=== PATIENT | male | born 1980 | race Caucasian/White ===

== ENCOUNTER 2018-05-07 14:39 | Emergency (ER) | payer BC, OTHER ==
[2018-05-07] MEDS ORDERED: KETOROLAC TROMETHAMINE INJ 30 MG/ML VIAL IV ONE (14:40)
[2018-05-07] MEDS ORDERED: HYDROmorphone HCL INJ 2 MG/ML VIAL IV ONE ×2 (14:40→15:33)
--- NOTE | 2018-05-07 14:45 | ED.PDOC ---
History of Present Illness - General Chief Complaint: General Stated Complaint: severe post surgical pain Time Seen by Provider: 05/07/18 14:40 Source: patient Exam Limitations: no limitations - History of Present Illness Initial Comments: patient comes in for severe postoperative pain not relieved by home medications. On Saturday patient was on vacation and slipped and fell down a flight of stairs causing a fracture of his jaw and right lower extremity. Yesterday patient had those things fixed surgically and he was discharged from the hospital last night. Patient states since discharge he has been excruciating pain despite taking 2 of his hydrocodone 10/325. He called his surgeon who called in some muscle relaxer that he has not yet picked up from pharmacy as he is in severe pain and decided to come here. Patient states that prior to discharge he was on Toradol and Dilaudid and neither hydrocodone nor morphine had helped when he was at the hospital. Patient denies any past medical history and has no known drug allergies. Timing/Duration: 24 hours Severity: severe Improving Factors: nothing Worsening Factors: movement Associated Symptoms: denies symptoms Allergies/Adverse Reactions: Allergies NO KNOWN ALLERGY Allergy (Verified 05/07/18 15:19) Home Medications: Ambulatory Orders Aspirin [Baby Aspirin] 1 tablet PO DAILY 05/07/18 Flexeril 05/07/18 HYDROcodone 10MG/APAP 325MG [[place] 10/325] 1 tablet PO Q4HR PRN 05/07/18 Ketorolac Tromethamine [Toradol Tabs] 10 mg PO Q6HRS PRN 3 Days #12 tab Tramadol HCl [Ultram] 100 mg PO Q6HRS PRN 4 Days #30 tab 05/07/18 Review of Systems - Review of Systems Constitutional: States: no symptoms reported. Denies: chills, fever EENTM: States: no symptoms reported Respiratory: States: no symptoms reported Cardiology: States: no symptoms reported. Denies: chest pain, edema, palpitations Gastrointestinal/Abdominal: States: no symptoms reported Genitourinary: States: no symptoms reported Musculoskeletal: States: see HPI Family Medical History - Family History Mother Family History: Unknown Physical Exam - Physical Exam General Appearance: Alert, Obvious distress, Restless Ears, Nose, Throat: hearing grossly normal, other - Jaw wired shut Neck: non-tender, full range of motion, supple, normal inspection Respiratory: chest non-tender, lungs clear, normal breath sounds, no respiratory distress Cardiovascular/Chest: normal peripheral pulses, no edema, no gallop, no murmur, tachycardia Peripheral Pulses: radial,right: 2+, radial,left: 2+ Gastrointestinal/Abdominal: normal bowel sounds, non tender, soft, no organomegaly Extremity: other - RLE with posterior splint in place and good sensation, color , and capillary refill to toes, removal of splint shows well approximated incisions bilaterally without purulence, redness, and only minimal edema. Progress - Progress Progress: called orthopedic physician for patient who performed repair. Dr. Valerio states he is concerned with the patient's request for stronger narcotics. Patient left originally prior to fixation of the injury AGAINST MEDICAL ADVICE, showed up to several other hospitals and then returned to have it fixed. After the original fixation patient was adamant that he wanted to be released home and was discharged home yesterday. states he does not give stronger narcotics for these kind of repairs and he worries that the patient's shows some symptoms concerning for abuse potential. Patient denies any drug abuse now or in the past states he drinks alcohol and uses testosterone but has only used marijuana 3 times as life and of those were recent. At this time we are to get the patient's pain under control and we'll send him home with Toradol to add the hydrocodone when necessary he has. He should follow up with orthopedics as planned and call in the morning if needed. 05/07/18 15:58 - Results/Orders Results/Orders: x-ray shows good placement and no movement of recent repair Departure - Departure Clinical Impression: Pain Disposition: Discharge to Home or Self Care Condition: Good Departure Forms: ED Discharge - Pt. Copy, Patient Portal Self Enrollment Referrals: Guanako Browne MD [Primary Care Provider] - 1-2 Weeks Prescriptions: Ketorolac Tromethamine [Toradol Tabs] 10 mg PO Q6HRS PRN 3 Days #12 tab PRN Reason: Pain Tramadol HCl [Ultram] 100 mg PO Q6HRS PRN 4 Days #30 tab PRN Reason: Pain Home Medications: Ambulatory Orders Aspirin [Baby Aspirin] 1 tablet PO DAILY 05/07/18 Flexeril 05/07/18 HYDROcodone 10MG/APAP 325MG [[place] 10/325] 1 tablet PO Q4HR PRN 05/07/18 Ketorolac Tromethamine [Toradol Tabs] 10 mg PO Q6HRS PRN 3 Days #12 tab Tramadol HCl [Ultram] 100 mg PO Q6HRS PRN 4 Days #30 tab 05/07/18 Additional Instructions: Patient may continue hydrocodone in addition to the Ultram and Toradol that he is given. Patient is aware that Toradol is a type of NSAID and that he should not take other NSAIDs at the same time as the Toradol. Patient was given a dose here in the emergency room. patient may take a dose of Ultram every 6 hours starting directly after discharge. Patient's next dose of Toradol should not be until 11 PM. The Toradol should not exceed an additional 3 days. Patient may alternate hydrocodone with Ultram and Toradol. follow-up with orthopedics via phone tomorrow to discuss if change in treatment is needed.
[2018-05-07 15:20] VITALS: TEMP 99.9
--- NOTE | 2018-05-07 15:53 | RAD ---
EXAM DESCRIPTION: Ankle,Right 2 Views CLINICAL HISTORY: 37 years, Male, pain/fall after repair COMPARISON: None. TECHNIQUE: Two views right ankle. FINDINGS: Three views right ankle demonstrate fixation of the medial malleolus with two longitudinal screws. The distal fibula is internally fixed with sideplate with proximal and distal screws as well as two transverse screws into the distal tibia. Previous fixation site probably an external fixator involving the distal tibial shaft is noted more proximally. The ankle mortise is well-maintained on these two views. IMPRESSION: 1. Satisfactory preservation of ankle mortise with internal fixation of the medial and lateral malleolus. Electronically signed by: Guanako Conley MD 05/07/2018 3:51 PM [facility]
[2018-05-07 16:45] VITALS: O2SAT 96
[2018-05-07 16:46] VITALS: BP 137/91
== END 2018-05-07 16:45 | disposition home or self-care (01) ==
LOC: ER 14:39
DX: G89.18 Other acute postprocedural pain (principal)
CPT/HCPCS: 73600; J1170; J1885